=== PATIENT | male | born 1955 ===

== ENCOUNTER 2018-01-11 18:26 | Emergency (ER) | payer BC ==
--- NOTE | 2018-01-11 18:59 | UC ---
Skin Complaint HPI - HPI Summary HPI Summary: patient noticed a "bullseye rash" right mid axilla line----patient does not remember a tick bit but has been camping locals and in the [facility] these past 2 weeks - History of Current Complaint Chief Complaint: [facility] Time Seen by Provider: 01/11/18 18:53 Stated Complaint: POSSIBLE TICK Hx Obtained From: Patient Onset/Duration: Sudden Onset, Still Present Pain Intensity: 0 Location: Discrete Aggravating Factor(s): Nothing Alleviating Factor(s): Nothing Associated Signs & Symptoms: Positive: Rash - 6 cm diameter "bulls' eye rash" - Allergy/Home Medications Allergies/Adverse Reactions: Allergies Allergy/AdvReac Type Severity Reaction Status Date / Time No Known Allergies Allergy Verified 01/11/18 18:58 Review of Systems Constitutional: Negative Skin: Rash - as described Eyes: Negative ENT: Negative Respiratory: Negative Cardiovascular: Negative Gastrointestinal: Negative Genitourinary: Negative Motor: Negative Neurovascular: Negative Musculoskeletal: Negative Neurological: Negative Psychological: Negative Is Patient Immunocompromised?: No All Other Systems Reviewed And Are Negative: Yes PMH/Surg Hx/FS Hx/Imm Hx Previously Healthy: Yes - Surgical History Surgical History: None - Family History Known Family History: Positive: None - Social History Occupation: Employed Full-time Lives: With Family Alcohol Use: None Physical Exam Triage Information Reviewed: Yes Appearance: Well-Appearing, No Pain Distress, Well-Nourished Vital Signs Reviewed: Yes Eye Exam: Normal Eyes: Positive: Conjunctiva Clear ENT Exam: Normal ENT: Positive: Normal ENT inspection, Hearing grossly normal. Negative: Trismus , Muffled voice, Hoarse voice Dental Exam: Normal Neck exam: Normal Neck: Positive: Supple, Nontender Respiratory Exam: Normal Respiratory: Positive: Chest non-tender, No respiratory distress, No accessory muscle use Cardiovascular Exam: Normal Cardiovascular: Positive: RRR, Pulses Normal, Brisk Capillary Refill Musculoskeletal Exam: Normal Musculoskeletal: Positive: Strength Intact, ROM Intact Neurological Exam: Normal Neurological: Positive: Alert, Muscle Tone Normal Psychological Exam: Normal Skin Exam: Normal Skin: Positive: Other - 6 cm diameter bulls eye rash right mid axilla Course/Dx - Course Course Of Treatment: doxycycline , referal to pcp for further care and re- evaluation of BP - Diagnoses Provider Diagnoses: Bull's eye rash, early Lyme Discharge - Sign-Out/Discharge Documenting (check all that apply): Patient Departure All imaging exams completed and their final reports reviewed: No Studies - Discharge Plan Condition: Stable Disposition: HOME Prescriptions: DOXYcycline CAP(*) [DOXYcycline 100MG CAP(*)] 100 mg PO BID #[id number] cap Patient Education Materials: Lyme Disease (ED), Hypertension (ED) Referrals: Care [facility] [Outside] - 1 Week [facility] [Outside] - 1 Week - Billing Disposition and Condition Condition: STABLE Disposition: Home
== END 2018-01-11 19:05 | disposition home or self-care (01) ==
LOC: UCEAST 18:26
DX: R21 Rash and other nonspecific skin eruption (principal); A69.20 Lyme disease, unspecified
CPT/HCPCS: 99202; G0463